=== PATIENT | female | born 1985 | race Caucasian/White ===

== ENCOUNTER 2017-05-28 09:59 | Emergency (ER) | payer OTHER ==
[~2017-05-28] VITALS: Ht 157.5 cm; Wt 52.2 kg
--- NOTE | ~2017-05-28 | EKG ---
[place] [address] [address] [facility] [place] [address] ELECTROCARDIOGRAM REPORT Name: ROB RASMUSSEN [id number] Admission: 05/28/17 Attend Phys: Discharge: 05/28/17 Date of : 87 Report #: [id number] THIS REPORT FOR: //name// [facility] ED Test Date: 2017-05-28 Test Time: 10:09:12 Pat Name: ROB RASMUSSEN Department: Room: Gender: F Linux Developer: Idania MALIK : 1985 Requested By: Jade Cornejo Order Number: [id number] MD: Rey Stevenson Measurements Intervals [place] Rate: 69 P: 79 CO: 159 QRS: 87 QRSD: 91 T: 63 QT: 382 QTc: 410 Interpretive Statements Sinus rhythm Normal tracing No previous ECG available for comparison Electronically Signed On 05-29-2017 13:34:47 CDT by Rey Stevenson [email or web address] <ELECTRONICALLY SIGNED> By: Rey Stevenson MD, [facility] 05/29/17 1334 [id number] Rey Stevenson MD, FACC /EPI
[~2017-05-28 09:59] MED LIST: ACULAR 0.5% EYE5 ML OP; NORCO 5-325 TA1 EACH PO; TOBREX5 ML OP
[2017-05-28 10:31] LABS: ABSOLUTE NEUTROPHILS 3.5 thou/uL (1.4-8.2); EOSINOPHILS 2.5 % (0.0-3.0); HEMATOCRIT 40.5 % (37.0-47.0); HEMOGLOBIN 13.5 gm/dL (12.0-15.0); LYMPHOCYTES 36.3 % (24.0-44.0); MCH 29.5 pg (26.0-34.0); MCHC 33.5 g/dL (28.0-37.0); MONOCYTES 6.1 % (1.0-8.0); PLATELET COUNT 254 thou/uL (150-400); POLYS 54.1 % (36.0-66.0); RDW 13.9 % (10.5-14.5); WBC 6.5 thou/uL (4.0-11.0)
[2017-05-28 10:33] LABS: MANUAL DIFF NO
[2017-05-28 10:43] LABS: ANION GAP 8 mmol/L (7-16); BUN 12 mg/dL (7-18); CALCIUM 9.1 mg/dL (8.5-10.1); CHLORIDE 104 mmol/L (98-107); CO2 28 mmol/L (21-32); CREATININE 0.9 mg/dL (0.6-1.0); GLUCOSE 118 mg/dL (74-106); POTASSIUM 3.9 mmol/L (3.5-5.1); SODIUM 140 mmol/L (136-145)
[2017-05-28 10:52] LABS: TROPONIN-I < 0.04 ng/mL (<0.04-0.07)
[2017-05-28 11:29] VITALS: BP 104/56
== END 2017-05-28 11:31 | disposition home or self-care (01) ==
LOC: ER 09:59
PROVIDERS: Emergency Medicine
DX: R09.1 Pleurisy (principal); R07.89 Other chest pain